=== PATIENT | male | born 1970 | race Hispanic/Latino ===

== ENCOUNTER 2025-09-10 16:00 | Emergency (ER) | payer SELFPAY ==
[2025-09-10] MEDS ORDERED: Azithromycin 250 MG TAB ONE (17:08)
[2025-09-10 17:38] LABS: #Basophils 0.2 thou/uL (0.0-0.2); #Eosinophils 0.9 thou/uL (0.0-0.7); #Lymphocytes 2.5 thou/uL (1.20-3.40); #Monocytes 1.3 thou/uL (0.11-0.59); #Neutrophils 10.3 thou/uL (1.40-6.50); %Basophils 1.5 % (0.0-1.0); %Eosinophils 5.7 % (0.0-10.0); %Lymphocytes 16.5 % (21.0-51.0); %Monocytes 8.7 % (0.0-10.0); %Neutrophils 67.5 % (42.0-75.0); Hematocrit 35.6 % (42.0-52.0); Hemoglobin 12.9 g/dL (14.0-18.0); Mean Corpuscular Hemoglobin 28.7 pg (27.0-31.0); Mean Corpuscular Volume 79.1 fl (78.0-98.0); Platelet Count 610 10x3/uL (130-400); Red Blood Cell (RBC) Count 4.50 mill/uL (4.70-6.10); White Blood Cell (WBC) Count 15.3 10x3/uL (4.8-10.8)
[2025-09-10 17:40] LABS: Glucose, Urine (Dipstick) Negative (Negative); Leukocyte Negative (Negative); Protein, Urine (Dipstick) Negative (Neg-Trace); Specific Gravity, Urine 1.015 (1.005-1.030)
[2025-09-10 17:58] LABS: ALT (SGPT) 64 U/L (Less than 45); AST (SGOT) 48 U/L (11-34); Albumin 2.7 g/dL (3.1-4.5); Alkaline Phosphatase 109 U/L (40-110); Anion Gap 15 mmol/L (10-20); BUN (Urea Nitrogen) 9 mg/dL (8.4-25.7); Bilirubin, Total 0.7 mg/dL (0.3-1.2); Calc. Creatinine Clearance 0 mL/min (70-130); Calcium 9.0 mg/dL (7.8-10.44); Carbon Dioxide 24 mmol/L (22-29); Chloride 97 mmol/L (98-107); Globulin 4.7 g/dL (2.4-3.5); Glucose 110 mg/dL (70-105); Potassium 4.1 mmol/L (3.5-5.1); Sodium 132 mmol/L (136-145)
[2025-09-10 18:12] LABS: Bacteria/HPF 1+ HPF (None Seen); CAUTI Indications for Culture Fever or rigors; RBC/HPF 0-3 HPF (0-3); WBC/HPF 0-3 HPF (0-3)
[2025-09-10 18:13] LABS: Urine Culture Reflex No No
== END 2025-09-10 18:28 | disposition home or self-care (01) ==
LOC: NAV ERS 16:00
DX: J20.9 Acute bronchitis, unspecified (principal); Z75.8 Other problems related to medical facilities and other health care; Z59.71 Insufficient health insurance coverage
CPT/HCPCS: 71046; 80053; 81001; 83880; 85025; 87428; J7030